=== PATIENT | male | born 1985 | race Caucasian/White ===

== ENCOUNTER → 2019-10-01 | Outpatient (CLI) | payer OTHER ==
--- NOTE | 2019-10-02 07:38 | RAD ---
EXAM: Left hand, 3 views. HISTORY: Pain. COMPARISON: None. FINDINGS: 3 views of the left hand are obtained. There is a chronic appearing avulsion fracture fragment involving the tuft of the third distal phalanx. There is a small bone fragment or foreign body along the ulnar aspect of the distal third phalanx. No convincing acute fracture is seen. IMPRESSION: Mildly displaced avulsion fracture of the tuft of the third distal phalanx. This is chronic in appearance. Electronically signed by: Jailene Burch MD (10/02/2019 7:35 AM) [id number]
== END ==
LOC: PMG 15:01
DX: S62.633A Displaced fracture of distal phalanx of left middle finger, initial encounter for closed fracture (principal); X58.XXXA Exposure to other specified factors, initial encounter; Y93.89 Activity, other specified; Y92.89 Other specified places as the place of occurrence of the external cause; Y99.8 Other external cause status
CPT/HCPCS: 73140